=== PATIENT | female | born 1950 | race Caucasian/White ===

== ENCOUNTER 2018-01-23 13:53 | Outpatient (CLI) | payer MEDICARE, MEDICAID | END 2018-01-23 13:54 | disposition home or self-care (01) | LOC: BICMAMMO 13:53 | DX: Z12.31 Encounter for screening mammogram for malignant neoplasm of breast (principal); M79.89 Other specified soft tissue disorders | CPT/HCPCS: 76882; 77063; 77067 ==

== ENCOUNTER 2023-05-02 07:42 | Inpatient (IN) | payer OTHER ==
[2023-05-02] MEDS ORDERED: Ondansetron ODT 4 MG TAB PO PRN (11:55)
[2023-05-02] MEDS ORDERED: Ondansetron PF 4 MG/2 ML Vial IVP PRN (11:55)
[2023-05-02] MEDS ORDERED: Acetaminophen 650 MG Suppository PR PRN (11:55)
[2023-05-02] MEDS ORDERED: Glucagon 1 MG/ML KIT IM PRN (12:43)
[2023-05-02] MEDS ORDERED: Insulin Regular 300 UNITS/3 ML VIAL SC PRN (12:43)
[2023-05-02] MEDS ORDERED: Dextrose 50% Abboject 50 ML SYRINGE SLOW IVP PRN (12:43)
[2023-05-02] MEDS ORDERED: Dextrose 5% in Water 1,000 ML IV PRN (12:43)
[2023-05-02 14:02] LABS: Lactic Acid 1.9 mmol/L (0.5-2.2)
[2023-05-02 14:47] LABS: CKMB 3.3 ng/mL (0-6.6)
[2023-05-02 14:58] VITALS: BMI 26.6
[2023-05-02] MEDS ORDERED: Communication Order-Pharmacy FS SCH (15:00)
[2023-05-02] MEDS: Sodium Chloride 0.9% 1,000 ML IV SCH ×2 (16:08→21:38)
[2023-05-02] MEDS: Acetaminophen 325 MG TAB PO PRN (16:18)
[2023-05-02] MEDS: Cefepime 1 GM in Sodium Chloride 0.9% 100 ML IVPB SCH (18:16)
[2023-05-02 18:54] LABS: Syphilis Antibody Nonreactive (Nonreactive); Syphilis Antibody Index 0.05 S/CO (<1.00 Non-Reactive)
[2023-05-02 20:47] LABS: Critical Call Chem Troponin I RESULT DECREASING
[2023-05-02] MEDS ORDERED: Vancomycin 1 GM in Premix Bag 1 BAG IVPB SCH (21:00)
[2023-05-02] MEDS: Vancomycin HCl 750 MG in Sodium Chloride 0.9% 250 ML 250 ML IVPB SCH (21:38)
[2023-05-03] LABS: CKMB 3.9 ng/mL (0-6.6)
[2023-05-03] MEDS: Acetaminophen 325 MG TAB PO PRN (02:33)
[2023-05-03 04:30] LABS: #Eosinphils 0.1 thou/uL (0.0-0.7); #Monocytes 0.7 thou/uL (0.11-0.59); #Neutrophils 2.9 thou/uL (1.40-6.50); %Basophils 0.6 % (0.0-1.0); %Eosinophils 1.2 % (0.0-10.0); %Lymphocytes 44.2 % (21.0-51.0); %Monocytes 10.5 % (0.0-10.0); %Neutrophils 43.1 % (42.0-75.0); Hemoglobin 12.5 g/dL (12.0-16.0); Mean Corpuscular Hemoglobin 29.8 pg (27.0-31.0); Mean Corpuscular Volume 90.2 fl (78.0-98.0); Mean Platelet Volume 10.6 fL (7.4-10.4); Platelet Count 142 10x3/uL (130-400); RBC Distribution Width 13.4 % (11.5-14.5); White Blood Cell (WBC) Count 6.7 10x3/uL (4.8-10.8)
[2023-05-03 04:53] LABS: Anion Gap 10 mmol/L (10-20); BUN (Urea Nitrogen) 16 mg/dL (9.8-20.1); Calc. Creatinine Clearance 63 mL/min (70-130); Calcium 8.2 mg/dL (7.8-10.44); Carbon Dioxide 19 mmol/L (23-31); Chloride 108 mmol/L (98-107); Estimated GFR 66; Glucose 97 mg/dL (83-110); Potassium 3.2 mmol/L (3.5-5.1); Sodium 134 mmol/L (136-145)
[2023-05-03] MEDS: Cefepime 1 GM in Sodium Chloride 0.9% 100 ML IVPB SCH ×2 (05:38→17:48)
[2023-05-03 08:33] LABS: Cardiac Risk 3.5 (Less than 4.5)
[2023-05-03] MEDS: Atorvastatin Calcium 10 MG TAB PO SCH (11:25)
[2023-05-03] MEDS: Vancomycin HCl 750 MG in Sodium Chloride 0.9% 250 ML 250 ML IVPB SCH ×2 (11:25→23:01)
[2023-05-03] MEDS ORDERED: Regadenoson 0.4 MG/5 ML SYRINGE ONE (14:58)
[2023-05-03] MEDS ORDERED: Ketorolac Tromethamine 30 MG/ML VIAL IVP PRN (16:35)
[2023-05-03] MEDS ORDERED: Potassium Chloride 20 MEQ TAB PO SCH (16:45)
[2023-05-03] MEDS: Sodium Chloride 0.9% 1,000 ML IV SCH ×2 (17:27→23:02)
[2023-05-03 22:18] LABS: Vancomycin, Trough 12.3 ug/mL
[2023-05-04 05:46] LABS: #Eosinphils 0.1 thou/uL (0.0-0.7); #Monocytes 0.5 thou/uL (0.11-0.59); #Neutrophils 2.8 thou/uL (1.40-6.50); %Basophils 0.7 % (0.0-1.0); %Eosinophils 1.5 % (0.0-10.0); %Lymphocytes 36.5 % (21.0-51.0); %Monocytes 9.8 % (0.0-10.0); %Neutrophils 51.1 % (42.0-75.0); Mean Corpuscular HGB CONC 33.3 g/dL (32.0-36.0); Mean Corpuscular Hemoglobin 29.9 pg (27.0-31.0); Mean Corpuscular Volume 89.6 fl (78.0-98.0); Mean Platelet Volume 10.6 fL (7.4-10.4); Platelet Count 141 10x3/uL (130-400); RBC Distribution Width 13.4 % (11.5-14.5); Red Blood Cell (RBC) Count 4.02 mill/uL (4.20-5.40); White Blood Cell (WBC) Count 5.4 10x3/uL (4.8-10.8)
[2023-05-04] MEDS: Cefepime 1 GM in Sodium Chloride 0.9% 100 ML IVPB SCH (05:52)
[2023-05-04] MEDS: Sodium Chloride 0.9% 1,000 ML IV SCH ×3 (05:53→20:27)
[2023-05-04 06:13] LABS: Anion Gap 12 mmol/L (10-20); BUN (Urea Nitrogen) 9 mg/dL (9.8-20.1); Calc. Creatinine Clearance 78 mL/min (70-130); Calcium 8.2 mg/dL (7.8-10.44); Carbon Dioxide 19 mmol/L (23-31); Chloride 113 mmol/L (98-107); Estimated GFR 84; Glucose 91 mg/dL (83-110); Magnesium 1.9 mg/dL (1.6-2.6); Potassium 3.3 mmol/L (3.5-5.1); Sodium 141 mmol/L (136-145)
[2023-05-04] MEDS: Atorvastatin Calcium 10 MG TAB PO SCH (09:11)
[2023-05-04] MEDS: Cefdinir 300 MG CAP PO SCH ×2 (09:11→20:28)
[2023-05-04 22:15] LABS: HIV-1 Quantitative, RNA PCR <20 copies/mL (.)
[2023-05-05 04:40] LABS: #Eosinphils 0.1 thou/uL (0.0-0.7); #Monocytes 0.6 thou/uL (0.11-0.59); #Neutrophils 2.3 thou/uL (1.40-6.50); %Basophils 0.6 % (0.0-1.0); %Eosinophils 2.2 % (0.0-10.0); %Lymphocytes 44.4 % (21.0-51.0); %Monocytes 10.3 % (0.0-10.0); %Neutrophils 41.9 % (42.0-75.0); Hemoglobin 11.5 g/dL (12.0-16.0); Mean Corpuscular HGB CONC 33.7 g/dL (32.0-36.0); Mean Corpuscular Hemoglobin 30.3 pg (27.0-31.0); Mean Platelet Volume 10.5 fL (7.4-10.4); Platelet Count 152 10x3/uL (130-400); RBC Distribution Width 13.6 % (11.5-14.5); Red Blood Cell (RBC) Count 3.79 mill/uL (4.20-5.40); White Blood Cell (WBC) Count 5.4 10x3/uL (4.8-10.8)
[2023-05-05 04:58] LABS: Anion Gap 11 mmol/L (10-20); BUN (Urea Nitrogen) 9 mg/dL (9.8-20.1); Calc. Creatinine Clearance 72 mL/min (70-130); Calcium 8.6 mg/dL (7.8-10.44); Carbon Dioxide 23 mmol/L (23-31); Chloride 113 mmol/L (98-107); Estimated GFR 77; Glucose 92 mg/dL (83-110); Potassium 3.8 mmol/L (3.5-5.1); Sodium 143 mmol/L (136-145)
[2023-05-05] MEDS: Sodium Chloride 0.9% 1,000 ML IV SCH (05:48)
[2023-05-05] MEDS: Cefdinir 300 MG CAP PO SCH (09:14)
[2023-05-05] MEDS: Atorvastatin Calcium 10 MG TAB PO SCH (09:14)
[2023-05-05 13:49] VITALS: BP 108/62; TEMP 98
== END 2023-05-05 15:15 | disposition home or self-care (01) | DRG 864 ==
LOC: INTOOBSV 09:15 → 2NO 09:15 → OBSVTOIN 05-03 13:00
PROVIDERS: ADMIT Family Medicine; ATTEND Emergency Medicine
DX: R50.9 Fever, unspecified (principal); I21.A1 Myocardial infarction type 2; M06.9 Rheumatoid arthritis, unspecified; I10 Essential (primary) hypertension; E78.5 Hyperlipidemia, unspecified; E11.9 Type 2 diabetes mellitus without complications; Z90.49 Acquired absence of other specified parts of digestive tract; Z88.1 Allergy status to other antibiotic agents; Z88.8 Allergy status to other drugs, medicaments and biological substances; Z88.5 Allergy status to narcotic agent; Z79.899 Other long term (current) drug therapy; Z98.890 Other specified postprocedural states
CPT/HCPCS: 36415; 36416; 78452; 80048; 80061; 80202; 82553; 83605; 83735; 84145; 84443; 85025; 86780; 87081; 87536; 87633; 93017; 93306; 96372; 96374; 96375; 96376; A9500; G0378; J0692; J1650; J2405; J2785; J3370; J3490; J7050

== ENCOUNTER 2023-09-25 16:25 | Inpatient (IN) | payer OTHER ==
[2023-09-25] MEDS ORDERED: Ondansetron ODT 4 MG TAB PO PRN (21:14)
[2023-09-25] MEDS ORDERED: Acetaminophen 650 MG Suppository PR PRN (21:14)
[2023-09-25] MEDS ORDERED: Ondansetron PF 4 MG/2 ML Vial IVP PRN (21:14)
[2023-09-25] MEDS ORDERED: Sodium Chloride 0.9% 500 ML IV SCH (21:30)
[2023-09-25] MEDS ORDERED: Piperacillin/Tazobactam 3.375 GM in Sodium Chloride 0.9% 100 ML IVPB SCH (21:45)
[2023-09-25 22:22] VITALS: BMI 25.6
[2023-09-25] MEDS: Sodium Chloride 0.9% 1,000 ML IV SCH (23:04)
[2023-09-25] MEDS: Acetaminophen 325 MG TAB PO PRN (23:55)
[2023-09-26] MEDS: Piperacillin/Tazobactam 3.375 GM in Sodium Chloride 0.9% 100 ML IVPB SCH ×3 (01:23→17:18)
[2023-09-26 04:07] LABS: #Eosinphils 0.1 thou/uL (0.0-0.7); #Monocytes 0.5 thou/uL (0.11-0.59); #Neutrophils 2.1 thou/uL (1.40-6.50); %Basophils 0.6 % (0.0-1.0); %Eosinophils 1.6 % (0.0-10.0); %Monocytes 9.4 % (0.0-10.0); Hematocrit 33.6 % (36.0-47.0); Mean Corpuscular HGB CONC 32.7 g/dL (32.0-36.0); Mean Corpuscular Hemoglobin 29.4 pg (27.0-31.0); Mean Corpuscular Volume 89.8 fl (78.0-98.0); Mean Platelet Volume 10.8 fL (7.4-10.4); Platelet Count 156 10x3/uL (130-400); RBC Distribution Width 14.6 % (11.5-14.5); Red Blood Cell (RBC) Count 3.74 mill/uL (4.20-5.40); White Blood Cell (WBC) Count 5.1 10x3/uL (4.8-10.8)
[2023-09-26 04:35] LABS: Anion Gap 7 mmol/L (10-20); BUN (Urea Nitrogen) 14 mg/dL (9.8-20.1); Calc. Creatinine Clearance 61 mL/min (70-130); Calcium 7.9 mg/dL (7.8-10.44); Carbon Dioxide 21 mmol/L (23-31); Chloride 114 mmol/L (98-107); Estimated GFR 66; Glucose 103 mg/dL (83-110); Sodium 139 mmol/L (136-145)
[2023-09-26] MEDS: Sodium Chloride 0.9% 1,000 ML IV SCH ×2 (07:40→16:44)
[2023-09-26] MEDS: Acetaminophen 325 MG TAB PO PRN (08:29)
[2023-09-26] MEDS ORDERED: Ondansetron ODT 4 MG TAB PO PRN (14:05)
[2023-09-26] MEDS ORDERED: Potassium Chloride 20 MEQ TAB PO SCH (14:15)
[2023-09-26] MEDS: Potassium Chloride 20 MEQ TAB PO SCH (16:46)
[2023-09-27] MEDS: Sodium Chloride 0.9% 1,000 ML IV SCH ×2 (00:44→09:40)
[2023-09-27] MEDS: Piperacillin/Tazobactam 3.375 GM in Sodium Chloride 0.9% 100 ML IVPB SCH ×2 (03:44→09:58)
[2023-09-27 04:51] LABS: #Eosinphils 0.2 thou/uL (0.0-0.7); #Monocytes 0.6 thou/uL (0.11-0.59); #Neutrophils 3.3 thou/uL (1.40-6.50); %Basophils 0.5 % (0.0-1.0); %Eosinophils 2.5 % (0.0-10.0); %Lymphocytes 37.5 % (21.0-51.0); %Monocytes 8.6 % (0.0-10.0); %Neutrophils 50.1 % (42.0-75.0); Hematocrit 35.7 % (36.0-47.0); Hemoglobin 11.9 g/dL (12.0-16.0); Mean Corpuscular HGB CONC 33.3 g/dL (32.0-36.0); Mean Corpuscular Hemoglobin 29.9 pg (27.0-31.0); Mean Corpuscular Volume 89.7 fl (78.0-98.0); Platelet Count 150 10x3/uL (130-400); RBC Distribution Width 14.6 % (11.5-14.5); Red Blood Cell (RBC) Count 3.98 mill/uL (4.20-5.40); White Blood Cell (WBC) Count 6.5 10x3/uL (4.8-10.8)
[2023-09-27 05:31] LABS: ALT (SGPT) 41 U/L (8-55); AST (SGOT) 46 U/L (5-34); Albumin 3.6 g/dL (3.4-4.8); Alkaline Phosphatase 51 U/L (40-110); Anion Gap 11 mmol/L (10-20); BUN (Urea Nitrogen) 9 mg/dL (9.8-20.1); Bilirubin, Total 0.7 mg/dL (0.2-1.2); Calc. Creatinine Clearance 88 mL/min (70-130); Calcium 8.4 mg/dL (7.8-10.44); Carbon Dioxide 20 mmol/L (23-31); Chloride 113 mmol/L (98-107); Estimated GFR 92; Globulin 2.2 g/dL (2.4-3.5); Glucose 84 mg/dL (83-110); Lipase 35 U/L (8-78); Potassium 3.5 mmol/L (3.5-5.1); Protein, Total 5.8 g/dL (5.8-8.1); Sodium 140 mmol/L (136-145)
[2023-09-27 07:46] VITALS: BP 117/65; TEMP 98.3
[2023-09-27] MEDS ORDERED: Vitamin E 400 UNITS CAP PO SCH (09:00)
[2023-09-27] MEDS ORDERED: Atorvastatin Calcium 10 MG TAB PO SCH (09:00)
[2023-09-27] MEDS: Potassium Chloride 20 MEQ TAB PO SCH (09:58)
== END 2023-09-27 14:59 | disposition home or self-care (01) | DRG 315 ==
LOC: INTOOBSV 19:50 → 2NO 19:50 → OBSVTOIN 09-26 14:03
PROVIDERS: ADMIT Student in an Organized Health Care Education/Training Program; ATTEND Family Medicine
DX: I95.9 Hypotension, unspecified (principal); I24.89 Other forms of acute ischemic heart disease; R65.10 Systemic inflammatory response syndrome (SIRS) of non-infectious origin without acute organ dysfunction; K57.92 Diverticulitis of intestine, part unspecified, without perforation or abscess without bleeding; E78.5 Hyperlipidemia, unspecified; M19.90 Unspecified osteoarthritis, unspecified site; M06.9 Rheumatoid arthritis, unspecified; R74.01 Elevation of levels of liver transaminase levels; E86.0 Dehydration; Z79.82 Long term (current) use of aspirin; Z79.899 Other long term (current) drug therapy; Z88.8 Allergy status to other drugs, medicaments and biological substances; Z88.5 Allergy status to narcotic agent; Z90.49 Acquired absence of other specified parts of digestive tract; Z98.891 History of uterine scar from previous surgery; Z90.722 Acquired absence of ovaries, bilateral
CPT/HCPCS: 36415; 36416; 80048; 80053; 83690; 85025; J1650; J2543; J3490; J7030; J7050

== ENCOUNTER 2024-08-24 21:22 | Inpatient (IN) | payer OTHER ==
[2024-08-24] MEDS ORDERED: Ondansetron PF 4 MG/2 ML Vial IVP PRN (23:50)
[2024-08-24] MEDS ORDERED: Acetaminophen 650 MG Suppository PR PRN (23:50)
[2024-08-24] MEDS ORDERED: Ondansetron ODT 4 MG TAB PO PRN (23:50)
[2024-08-25 01:24] LABS: #Basophils 0.03 10x3/uL (0.0-0.2); #Eosinophils Less than 0.03 10x3/uL (0.0-0.7); %Basophils 0.3 % (0.0-1.0); %Lymphocytes 18.3 % (21.0-51.0); %Monocytes 8.8 % (0.0-10.0); %Neutrophils 71.9 % (42.0-75.0); Hematocrit 37.6 % (36.0-47.0); Hemoglobin 12.5 g/dL (12.0-16.0); Mean Corpuscular HGB CONC 33.2 g/dL (32.0-36.0); Mean Corpuscular Volume 90.4 fL (78.0-98.0); Platelet Count 152 10x3/uL (130-400); RBC Distribution Width 13.3 % (11.5-14.5); Red Blood Cell (RBC) Count 4.16 mill/uL (4.20-5.40)
[2024-08-25 01:55] LABS: Anion Gap 14 mmol/L (10-20); BUN (Urea Nitrogen) 11 mg/dL (9.8-20.1); Calc. Creatinine Clearance 60 mL/min (70-130); Calcium 7.8 mg/dL (7.8-10.44); Carbon Dioxide 19 mmol/L (23-31); Chloride 110 mmol/L (98-107); Estimated GFR 61; Glucose 131 mg/dL (83-110); Potassium 4.1 mmol/L (3.5-5.1); Sodium 139 mmol/L (136-145)
[2024-08-25 03:24] LABS: Hematocrit 38.1 % (36.0-47.0); Hemoglobin 12.5 g/dL (12.0-16.0); Platelet Count 155 10x3/uL (130-400)
[2024-08-25 03:41] LABS: Lactic Acid 1.08 mmol/L (0.5-2.2)
[2024-08-25 03:53] LABS: Critical Call Chem Troponin I DECREASING; Troponin I 3.986 ng/mL (< 0.028)
[2024-08-25] MEDS: Heparin 25,000 units/D5W 500 ML IVPB SCH (04:15)
[2024-08-25] MEDS: Acetaminophen 325 MG TAB PO SCH (04:16)
[2024-08-25] MEDS ORDERED: Morphine 2 MG/ML VIAL SLOW IVP PRN (08:32)
[2024-08-25] MEDS ORDERED: Lidocaine 4% Patch TD SCH ×2 (08:45→09:00)
[2024-08-25] MEDS ORDERED: Heparin 10,000 UNITS/ 10 ML VIAL SLOW IVP SCH (10:00)
[2024-08-25] MEDS: Lidocaine 4% Patch TD SCH (10:08)
[2024-08-25] MEDS: Famotidine 20 MG TAB PO SCH (10:08)
[2024-08-25] MEDS: Clopidogrel Bisulfate 300 MG TAB PO SCH (10:08)
[2024-08-25] MEDS: Enoxaparin 80 MG (0.8 mL) SYRINGE SC SCH ×2 (10:09→21:19)
[2024-08-25] MEDS: Famotidine/PF 20 mg/2ml Vial SLOW IVP SCH (10:09)
[2024-08-25] MEDS: Lactated Ringer's 1,000 ML IV SCH (10:16)
[2024-08-25] MEDS: Piperacillin/Tazobactam 3.375 GM in Sodium Chloride 0.9% 100 ML IVPB SCH ×2 (10:16→18:20)
[2024-08-25] MEDS: Sodium Chloride 0.9% 500 ML IV SCH (10:53)
[2024-08-25] MEDS ORDERED: Piperacillin/Tazobactam 3.375 GM in Sodium Chloride 0.9% 100 ML IVPB SCH (12:00)
[2024-08-25 18:12] VITALS: BMI 28.8
[2024-08-25] MEDS: Transdermal Patch Removal TOP SCH (21:00)
[2024-08-25] MEDS: Atorvastatin Calcium 40 MG TAB PO SCH (21:18)
[2024-08-25] MEDS: HYDROcodone/Acetaminophen 5/325 mg Tablet PO PRN (21:23)
[2024-08-26 04:27] LABS: #Basophils 0.04 10x3/uL (0.0-0.2); %Basophils 0.6 % (0.0-1.0); %Eosinophils 1.2 % (0.0-10.0); %Lymphocytes 33.1 % (21.0-51.0); %Monocytes 9.1 % (0.0-10.0); %Neutrophils 55.5 % (42.0-75.0); Hematocrit 35.8 % (36.0-47.0); Hemoglobin 11.8 g/dL (12.0-16.0); Mean Corpuscular Hemoglobin 29.4 pg (27.0-31.0); Mean Corpuscular Volume 89.1 fL (78.0-98.0); Mean Platelet Volume 10.4 fL (7.4-10.4); Platelet Count 131 10x3/uL (130-400); RBC Distribution Width 13.6 % (11.5-14.5); Red Blood Cell (RBC) Count 4.02 mill/uL (4.20-5.40)
[2024-08-26 04:36] LABS: CRP,High Sensitivity (Inhouse) 2.18 mg/dL (< or = 0.5)
[2024-08-26 04:37] LABS: ALT (SGPT) 149 U/L (8-55); AST (SGOT) 148 U/L (5-34); Alkaline Phosphatase 66 U/L (40-110); Anion Gap 9 mmol/L (10-20); BUN (Urea Nitrogen) 14 mg/dL (9.8-20.1); Bilirubin, Total 0.9 mg/dL (0.2-1.2); Calc. Creatinine Clearance 61 mL/min (70-130); Calcium 8.2 mg/dL (7.8-10.44); Carbon Dioxide 22 mmol/L (23-31); Cardiac Risk 3.6 (Less than 4.5); Chloride 111 mmol/L (98-107); Cholesterol 158 mg/dl (< 200 Desired); Estimated GFR 58; Globulin 2.6 g/dL (2.4-3.5); Glucose 107 mg/dL (83-110); HDL Cholesterol 44 mg/dL (>60 Neg Risk); LDL Cholesterol, Calculated 89 mg/dL; Magnesium 1.9 mg/dL (1.6-2.6); Potassium 3.5 mmol/L (3.5-5.1); Protein, Total 5.6 g/dL (5.8-8.1); Sodium 138 mmol/L (136-145); Triglycerides 125 mg/dL (Less than 150)
[2024-08-26 04:45] LABS: Hemoglobin A1c 5.5 % (4.0-6.0)
[2024-08-26] MEDS: Clopidogrel Bisulfate 75 MG TAB PO SCH (09:37)
[2024-08-26] MEDS ORDERED: Heparin 10,000 UNITS/ 10 ML VIAL SLOW IVP SCH (10:00)
[2024-08-27] MEDS ORDERED: Acetaminophen 325 MG TAB PO PRN (02:06)
[2024-08-27 03:24] LABS: #Basophils 0.05 10x3/uL (0.0-0.2); %Basophils 0.6 % (0.0-1.0); %Eosinophils 1.2 % (0.0-10.0); %Lymphocytes 26.5 % (21.0-51.0); %Monocytes 8.8 % (0.0-10.0); %Neutrophils 61.8 % (42.0-75.0); Hematocrit 35.7 % (36.0-47.0); Hemoglobin 12.2 g/dL (12.0-16.0); Mean Corpuscular HGB CONC 34.2 g/dL (32.0-36.0); Mean Corpuscular Hemoglobin 30.2 pg (27.0-31.0); Mean Corpuscular Volume 88.4 fL (78.0-98.0); Mean Platelet Volume 9.9 fL (7.4-10.4); Platelet Count 132 10x3/uL (130-400); RBC Distribution Width 13.4 % (11.5-14.5); Red Blood Cell (RBC) Count 4.04 mill/uL (4.20-5.40)
[2024-08-27 08:30] LABS: ALT (SGPT) 108 U/L (8-55); AST (SGOT) 87 U/L (5-34); Albumin 3.1 g/dL (3.4-4.8); Alkaline Phosphatase 81 U/L (40-110); Anion Gap 9 mmol/L (10-20); BUN (Urea Nitrogen) 11 mg/dL (9.8-20.1); Bilirubin, Total 0.9 mg/dL (0.2-1.2); Calc. Creatinine Clearance 67 mL/min (70-130); Calcium 8.3 mg/dL (7.8-10.44); Carbon Dioxide 24 mmol/L (23-31); Chloride 110 mmol/L (98-107); Estimated GFR 65; Globulin 2.6 g/dL (2.4-3.5); Glucose 94 mg/dL (83-110); Potassium 3.1 mmol/L (3.5-5.1); Protein, Total 5.7 g/dL (5.8-8.1); Sodium 140 mmol/L (136-145)
[2024-08-27] MEDS: HYDROcodone/Acetaminophen 5/325 mg Tablet PO SCH (10:48)
[2024-08-27] MEDS: Potassium Chloride 20 MEQ TAB PO SCH (10:49)
[2024-08-27] MEDS: FLU (Fluad Triv) TS24-25 (65UP)/MF59C/PF 45 MCG/0.5 ML Syringe IM ONE (11:13)
[2024-08-27 16:06] VITALS: BMI 28.8
[2024-08-27] MEDS: Amoxicillin/Potassium Clav 875 MG TAB PO SCH (21:32)
[2024-08-28 04:49] LABS: #Basophils 0.04 10x3/uL (0.0-0.2); %Basophils 0.7 % (0.0-1.0); %Eosinophils 2.9 % (0.0-10.0); %Lymphocytes 32.5 % (21.0-51.0); %Monocytes 9.7 % (0.0-10.0); %Neutrophils 52.9 % (42.0-75.0); Hematocrit 36.6 % (36.0-47.0); Hemoglobin 12.1 g/dL (12.0-16.0); Mean Corpuscular HGB CONC 33.1 g/dL (32.0-36.0); Mean Corpuscular Hemoglobin 29.3 pg (27.0-31.0); Mean Corpuscular Volume 88.6 fL (78.0-98.0); Mean Platelet Volume 10.4 fL (7.4-10.4); Platelet Count 157 10x3/uL (130-400); RBC Distribution Width 13.7 % (11.5-14.5); Red Blood Cell (RBC) Count 4.13 mill/uL (4.20-5.40)
[2024-08-28 04:58] LABS: ALT (SGPT) 94 U/L (8-55); AST (SGOT) 72 U/L (5-34); Albumin 3.1 g/dL (3.4-4.8); Alkaline Phosphatase 94 U/L (40-110); Anion Gap 11 mmol/L (10-20); BUN (Urea Nitrogen) 12 mg/dL (9.8-20.1); Bilirubin, Total 0.6 mg/dL (0.2-1.2); Calc. Creatinine Clearance 71 mL/min (70-130); Calcium 8.6 mg/dL (7.8-10.44); Carbon Dioxide 21 mmol/L (23-31); Chloride 110 mmol/L (98-107); Estimated GFR 70; Globulin 2.8 g/dL (2.4-3.5); Glucose 101 mg/dL (83-110); Potassium 3.6 mmol/L (3.5-5.1); Protein, Total 5.9 g/dL (5.8-8.1); Sodium 138 mmol/L (136-145)
[2024-08-28 05:15] LABS: HBsAg Index 0.35 S/CO (0-0.99); Hep A IgM AB NONREACTIVE (NonReactive); Hep A IgM S/CO 0.19 S/CO (0-0.79); Hep B Core IgM Index 0.08 S/CO (0-0.79); Hep B Surf Ag NONREACTIVE S/CO (NonReactive); Hep C IgG Ab NONREACTIVE S/CO (NonReactive); Hep C Index 0.18 S/CO (0-0.79); Hepatitis B Core IgM Abs NONREACTIVE S/CO (NonReactive)
[2024-08-28] MEDS: Ketorolac Tromethamine 30 MG (1 mL) VIAL IVP SCH (09:56)
[2024-08-28] MEDS: Enoxaparin 40 MG (0.4 mL) SYRINGE SC SCH (09:56)
[2024-08-28 14:12] VITALS: BP 111/75; TEMP 99
== END 2024-08-28 13:51 | disposition home or self-care (01) | DRG 871 ==
LOC: 2NO 21:22
PROVIDERS: ADMIT Hospitalist; ATTEND Family Medicine
DX: A41.9 Sepsis, unspecified organism (principal); G93.41 Metabolic encephalopathy; R65.21 Severe sepsis with septic shock; J18.9 Pneumonia, unspecified organism; I21.A1 Myocardial infarction type 2; K57.92 Diverticulitis of intestine, part unspecified, without perforation or abscess without bleeding; I95.9 Hypotension, unspecified; K52.9 Noninfective gastroenteritis and colitis, unspecified; M06.9 Rheumatoid arthritis, unspecified; E78.5 Hyperlipidemia, unspecified; E87.6 Hypokalemia; Z88.8 Allergy status to other drugs, medicaments and biological substances; Z88.5 Allergy status to narcotic agent; Z90.49 Acquired absence of other specified parts of digestive tract; Z98.890 Other specified postprocedural states
CPT/HCPCS: 36415; 36416; 72100; 80053; 80061; 80074; 83036; 83605; 83735; 84484; 85025; 85730; 86141; 93306; J1644; J1650; J1885; J2543; J7030; J7120